=== PATIENT | female | born 1990 | race Caucasian/White ===

== ENCOUNTER 2016-12-15 10:41 | Emergency (ER) ==
[2016-12-15 10:53] VITALS: BP 120/78; TEMP 98.2; BMI 25.1
--- NOTE | 2016-12-15 11:34 | ED.PDOC ---
General ED Provider: Dr. YARED FERNÁNDEZ Chief Complaint: Back Pain Stated Complaint: Moving 3 days ago, with heavy lifting frequently all day. Mid- afternoon, she picked up a box and felt a twinge of pain in mid back. Pain persisted but did not worsen until last evening. At that point and since then has had sharp pain with bending or twisting back. No radiation of pain. No other symptoms. Time Seen by Physician: 11:25 Information Source: Patient Exam Limitations: No limitations Nursing and Triage Documentation Reviewed and Agree: Yes Musculoskeletal Complaint Exam - Back Pain Complaint/Exam Mechanism of Injury: Reports: Trauma Onset/Duration: 3 days Symptoms Are: Still present Timing: Constant Episodes Lasting: Days Initial Severity: Mild Current Severity: Severe Location: Reports: Discrete (at lower thoracic/upper lumbar spine) Character: Reports: Sharp (sharp pain with bending or twisting), Aching, Throbbing Aggravating: Reports: Movements, Lifting, Bending Alleviating: Reports: None TAD Risk Factors: Reports: None AAA Risk Factors: Reports: None Cauda Equina Risk Factors: Reports: None Epidural Abcess Risk Factors: Reports: None Related Surgical History: Reports: None Focal Tenderness: Yes Paraspinal Muscle Tenderness: Yes Paraspinal Muscle Spasm: Yes Scoliosis: No Lordosis: No Kyphosis: No SLR Test: Right Negative, Left Negative Hip Motion Testing Pain: Right Negative, Left Negative Focal Weakness: Present: None Focal Sensory Loss: Present: None Gait: Present: Normal Differential Diagnoses: Fracture, Strain Review of Systems - Review Of Systems Constitutional: Reports: No symptoms Respiratory: Reports: No symptoms Cardiac: Reports: No symptoms GI: Reports: No symptoms : Reports: No symptoms Musculoskeletal: Reports: Back pain (paravertebral muscle pain at T10-L1 bilaterally), Muscle pain (paravertebral muscle pain at T10-L1 bilaterally. Pain increased markedly with attempted bending forward.) Skin: Reports: No symptoms Neurological: Reports: No symptoms All Other Systems: Reviewed and Negative Past Medical History - Past Medical History Previously Healthy: Yes Endocrine: Reports: None Cardiovascular: Reports: None Respiratory: Reports: None Hematological: Reports: None Gastrointestinal: Reports: None Genitourinary: Reports: UTI Neuro/Psych: Reports: None Musculoskeletal: Reports: None Cancer: Reports: None Last Menstrual Period: 3 weeks - Surgical History General Surgical History: Reports: None - Family History Family History: Reports: None - Social History Smoking Status: Never smoker Hx Substance Use: No Alcohol Screening: None Lives: With family - Immunizations Tetanus Shot up to Date: No Influenza Vaccine within 12 Months: No Pneumococcal Vaccine up to Date: No Physical Exam - Physical Exam Appearance: Well-appearing, No pain distress, Well-nourished Ill-appearing: None Pain Distress: None Respiratory: Airway patent, Breath sounds clear, Breath sounds equal, Respirations nonlabored Cardiovascular: RRR, Pulses normal, No rub, No murmur GI/: Soft, Nontender, No masses, Bowel sounds normal, No Organomegaly Musculoskeletal: Normal strength, No edema, No calf tenderness, Limited ROM ( limited ROM of spine secondary to pain. paravertebral muscle pain at T10-L1 bilaterally. Pain increased markedly with attempted bending forward.) Skin: Warm, Dry, Normal color Neurological: Sensation intact, Motor intact, Reflexes intact, Cranial nerves intact, Alert, Oriented Psychiatric: Affect appropriate, Mood appropriate Critical Care Note - Critical Care Note Total Time (mins): 0 Course - Course Orders, Labs, Meds: Lab Review 12/15/16 11:47 Urine Test Positive Orders Category Date Time Status TEST URINE [URINE ] Stat LAB 12/15/16 11:47 Completed LUMBAR SPINE, MIN 4 VIEWS Stat RADS 12/15/16 11:36 Ordered THORACIC SPINE, 3 VIEWS Stat RADS 12/15/16 11:35 Ordered Vital Signs: Temp Pulse Resp BP Pulse Ox 12/15/16 10:42 98.2 F 100 H 20 120/78 97 Departure - Departure Time of Disposition: 12:22 Disposition: HOME SELF-CARE Discharge Problem: Strain of mid-back Qualifiers: Encounter type: initial encounter Qualified Code(s): S29.012A - Strain of muscle and tendon of back wall of thorax, initial encounter Qualifiers: Weeks of gestation: unspecified Qualified Code(s): Z34.90 - Encounter for supervision of normal , unspecified, unspecified trimester Instructions: Thoracic Back Strain (ED) Condition: Good Pt referred to PMD for follow-up: Yes (follow up with family doctor or spool winder) Allergies/Adverse Reactions: Allergies No Known Allergies Allergy (Verified 11/04/15 15:16) Home Medications: Ambulatory Orders Acetaminophen with Codeine [Tylenol #3 Tab] 1 tab PO Q4H PRN #20 tablet Disposition Discussed With: Patient
[2016-12-15 11:57] LABS: URINE PREGNANCY INTERNAL QC INTERNAL QC VALID
== END 2016-12-15 12:45 | disposition home or self-care (01) ==
LOC: ED 10:41
DX: S29.012A Strain of muscle and tendon of back wall of thorax, initial encounter (principal); Z34.90 Encounter for supervision of normal pregnancy, unspecified, unspecified trimester; X50.0XXA Overexertion from strenuous movement or load, initial encounter
CPT/HCPCS: 81025; 99282

== ENCOUNTER 2018-01-06 18:56 | Emergency (ER) ==
[2018-01-06 18:56] VITALS: BMI 26.6
[2018-01-06 19:01] VITALS: BP 120/82; TEMP 98.9
--- NOTE | 2018-01-06 19:13 | ED.PDOC ---
General ED Provider: Dr. MALIHA BOURGEOIS-ER Chief Complaint: Psychiatric Complaint Stated Complaint: brought in by building operator dept for suicidal thoughts--she denies this--refuses any labs to be drawn Time Seen by Physician: 19:00 Mode of Arrival: Walk-In Information Source: Patient Exam Limitations: No limitations Nursing and Triage Documentation Reviewed and Agree: Yes Does patient meet sepsis criteria?: No System Inflammatory Response Syndrome: Not Applicable Sepsis Protocol: For patient's 13 years and over: Temp is 96.8 and below OR 101 and greater Pulse >90 BPM Resp >20/minute Acutely Altered Mental Status Are patient's symptoms suggestive of a new infection, such as: -Pneumonia -Skin, Soft Tissue -Endocarditis -UTI -Bone, Joint Infection -Implantable Device -Acute Abdominal Infection -Wound Infection -Meningitis -Blood Stream Catheter Infection -Unknown Psychological Complaint Exam - Psychiatric Complaint/Exam Patient Complains Of: Present: Other (reported suicidal but she denies this) Onset/Duration: unknown Symptoms Are: Still present Initial Severity: Mild Current Severity: Mild Character: Present: Frustrated Aggravating: Reports: Recent stress (see triage note) Related History: Reports: Recent stressors Completed Suicide Risk Factors: Patient Accompanied By: Police Patient In Custody Of Police: No Related Surgical History: Reports: None Patient Uncooperative For Exam: No Appearance: Present: Unkempt Insight: Present: Good Memory: Intact Judgement: Normal Danger To Others: No Patient Medically Stable For: Psych evaluation Differential Diagnoses: Depression, Other Review of Systems - Review Of Systems Constitutional: Reports: No symptoms Eyes: Reports: No symptoms Ears, Nose, Mouth, Throat: Reports: No symptoms Respiratory: Reports: No symptoms Cardiac: Reports: No symptoms GI: Reports: No symptoms : Reports: No symptoms Musculoskeletal: Reports: No symptoms Skin: Reports: No symptoms Neurological: Reports: No symptoms Endocrine: Reports: No symptoms Hematologic/Lymphatic: Reports: No symptoms All Other Systems: Reviewed and Negative Past Medical History - Past Medical History Previously Healthy: Yes Endocrine: Reports: None Cardiovascular: Reports: None Respiratory: Reports: None Hematological: Reports: None Gastrointestinal: Reports: None Genitourinary: Reports: UTI Neuro/Psych: Reports: None Musculoskeletal: Reports: None Cancer: Reports: None Last Menstrual Period: current - Surgical History General Surgical History: Reports: None - Family History Family History: Reports: None - Social History Smoking Status: Current every day smoker, Heavy tobacco smoker Hx Substance Use: No Alcohol Screening: Occasionally - Immunizations Tetanus Shot up to Date: No Influenza Vaccine within 12 Months: No Pneumococcal Vaccine up to Date: No Physical Exam - Physical Exam Appearance: Well-appearing, No pain distress, Well-nourished Eyes: SE, EOMI, Conjunctiva clear ENT: Ears normal, Nose normal, Oropharynx normal Neck: Supple Respiratory: Airway patent, Breath sounds clear, Breath sounds equal, Respirations nonlabored Cardiovascular: RRR GI/: Soft Musculoskeletal: Normal strength, ROM intact, No edema, No calf tenderness Skin: Warm, Dry, Normal color Neurological: Sensation intact, Motor intact, Reflexes intact, Cranial nerves intact, Alert, Oriented Psychiatric: Affect appropriate, Mood appropriate Interpretation - EKG Interpretation Time of EKG #1: 19:14 Rate: Normal Rhythm: Sinus Ectopy: None [place]: NL ST Segment: Normal Interpretation: nsr Re-Evaluation - Re-Evaluation Time of Re-Evaluation: 19:52 Status: Improved (denies being suicidal and demands to go home) Vital Signs Stable: Yes Pain Level: 0 Appearance: NAD Lungs: Clear Skin: Warm and Dry Neuro: Alert and Oriented X3 CV: RRR Additional Comments: Guilherme Novoa notified police dept of the patients intent to leave before mental Critical Care Note - Critical Care Note Total Time (mins): 0 Course - Course Orders, Labs, Meds: Orders Category Date Time Status EKG-(ED ONLY) Stat CARDIO 01/06/18 18:57 Completed police notified the patient intended to leave before mental health arrived -- Guilherme notified police dept and was told "to let her go" Vital Signs: Temp Pulse Resp BP Pulse Ox 01/06/18 18:56 98.9 F 99 H 18 120/82 97 Departure - Departure Time of Disposition: 19:54 Disposition: AMA Discharge Problem: Suicidal thoughts Instructions: Suicide Prevention (ED) Condition: Fair Pt referred to PMD for follow-up: Yes IPMP verified?: No Additional Instructions: keep f/u with pcp and mental health Allergies/Adverse Reactions: Allergies No Known Allergies Allergy (Verified 01/06/18 19:02) Home Medications: Ambulatory Orders 1 [No Reported Medications] 01/06/18 Disposition Discussed With: Patient
== END 2018-01-06 19:48 | disposition left against medical advice (07) ==
LOC: ED 18:56
DX: R45.851 Suicidal ideations (principal); F17.210 Nicotine dependence, cigarettes, uncomplicated
CPT/HCPCS: 93005; 93010; 99283